=== PATIENT | female | born 1950 | race Caucasian/White ===

== ENCOUNTER 2017-10-29 08:05 | Day surgery (SDC) | payer OTHER ==
[2017-10-19 10:41] VITALS: BMI 21.3
[2017-10-29] MEDS ORDERED: GABAPENTIN 300 MG CAPSULE (FP) PO STA (08:26)
[2017-10-29] MEDS ORDERED: oxyCODONE HCL 10 MG SUSTAINED ACTING TABLET PO STA (08:26)
[2017-10-29] MEDS ORDERED: THROMBIN (BOVINE) 5,000 UNIT VIAL TP ONE ×3 (08:41→11:45)
[2017-10-29] MEDS ORDERED: methylPREDNISolone ACET (DEPO) 40 MG/1 ML VIAL ONE (08:41)
[2017-10-29] MEDS ORDERED: LIDOCAINE 1%/EPI 1:100000 (20 ML MULTI DOSE VIAL) ONE (08:41)
[2017-10-29] MEDS ORDERED: MIDAZOLAM HCL 2 MG/2 ML SINGLE DOSE VIAL ONE ×2 (09:18→10:52)
[2017-10-29] MEDS ORDERED: BUPIVACAINE HCL/PF (5 MG/ML) 30 ML VIAL IJ ONE (09:19)
[2017-10-29] MEDS ORDERED: DEXAMETHASONE SOD PHOSPHATE/PF 10 MG/ML SDV ONE (09:19)
--- NOTE | 2017-10-29 10:32 | OP ---
Operative Note - Note: Operative Date: 10/29/17 Pre-Operative Diagnosis: lumbar stenosis Operation: laminectomy of L4-L5 Surgeon: Andrew Chavez Mowing Machine Operator: Fadumo Garces Anesthesiologist/ELECTRONIC BENCH TECHNICIAN: Ben Panda Anesthesia: Spinal Estimated Blood Loss (mls): 10 Fluid Volume Replaced (mls): 800 Operative Report Dictated: Yes
[2017-10-29] MEDS ORDERED: PROPOFOL 20 ML ONE (10:51)
[2017-10-29] MEDS ORDERED: SUCCINYLCHOLINE CHLORIDE 200 MG/10 ML VIAL ONE (10:52)
--- NOTE | 2017-10-29 12:02 | SURG ---
Surgery Truck Mechanic Note Truck Mechanic: Fadumo Garces PA-C Date of Service: 10/29/17 Diagnosis: lumbar stenosis Procedure: lamienctomy of L4-L5 I was present for the entirety of the operative procedure. For further detail, please refer to operative report. Visit type - Emergency Emergency Visit: No - New patient This patient is new to me today: Yes Date on this admission: 10/29/17
[2017-10-29] MEDS ORDERED: ONDANSETRON 4 MG/2 ML VIAL IVPUSH PRN (12:12)
[2017-10-29] MEDS ORDERED: oxyCODONE HCL 5 MG TABLET PO PRN ×2 (12:12)
[2017-10-29] MEDS ORDERED: PROMETHAZINE HCL 25 MG/1 ML VIAL IVPUSH PRN (12:12)
[2017-10-29 15:34] VITALS: BP 136/80; PULSE 81
[2017-10-29 15:38] VITALS: TEMP 98
--- NOTE | 2017-10-29 21:43 | OP ---
DATE OF OPERATION: 10/29/2017 PREOPERATIVE DIAGNOSIS: Spinal stenosis, L4-5. POSTOPERATIVE DIAGNOSIS: Spinal stenosis, L4-5. PROCEDURE PERFORMED: Laminectomy, L4-5. SURGEON: Andrew Chavez MD SPANISH INTERPRETER: GAURI Smith ESTIMATED BLOOD LOSS: 50 mL INTRAVENOUS FLUIDS: Per Anesthesia. ANESTHESIA: Spinal/TLIP. COMPLICATIONS: None. DISPOSITION: Patient was brought to the PACU in stable condition. INDICATION FOR SURGERY: The patient is a 67-year-old female who has been suffering from pain from her back down her leg. X-rays and MRI were completed which noted that she had spinal stenosis at L4-5. She had gone through an exhaustive course of treatment for this, which included medications, physical therapy as well as injections. Unfortunately, her pain continued to persist despite all this. At this point, risks, benefits, and alternatives were discussed, and the patient consented to surgery. DESCRIPTION OF PROCEDURE: Patient was brought to the operating room by the anesthesia staff. After appropriate patient identification was performed, spinal anesthesia was given. A TLIP block was also given. Patient was able to position herself prone onto the Tom frame. All areas of bony prominences were well padded at this time. Two needles were placed into her back to joaquin off the L4-5 segment. X-ray was taken to confirm this as correct. Poth were removed, and 10 mL of lidocaine with epinephrine were injected in her back at this time. Her back was prepped and draped in a sterile manner. At this point, a timeout was completed. An incision was made from the top of L4 down to the bottom of L5. Dissection was carried down to the fascia. Fascia was split open at this time, and appropriate retractor was then placed in. A spinal needle was placed onto the L4 lamina. X-ray was taken to confirm this as the L4-5 level. The needle was removed. The interspinous ligament at L4-5 was removed. Portions of the L4 and L5 spinous processes were removed. Portions of the L4 and L5 laminae were removed. The flavum was identified, was removed. A complete decompression was performed such that by the end of the procedure the L5 nerve root appeared to be well decompressed. All bleeding was well controlled at this time. Steroid was placed over the nerve root. FloSeal was placed over that. The fascia was closed with a No. 1 Vicryl suture. Subcutaneous tissues were closed with 2-0 Vicryl suture. Skin was closed with 3-0 Monocryl suture. Dermabond was applied. Steri-Strips were applied. A sterile dressing was applied. Patient was placed supine on the OR bed and brought to the PACU in stable condition. So [id number]
== END 2017-10-29 15:39 | disposition home or self-care (01) ==
LOC: FASU 08:05
PROVIDERS: ATTEND Orthopaedic Surgery Orthopaedic Surgery of the Spine
PROC: 01NB0ZZ Release Lumbar Nerve, Open Approach (ICD-10-PCS; principal; 2017-10-29 11:01)
DX: M48.061 Spinal stenosis, lumbar region without neurogenic claudication (principal)
CPT/HCPCS: 72100-TC-FY; 94760

== ENCOUNTER 2018-07-25 09:31 | Inpatient (IN) | payer OTHER ==
[2018-07-22 13:20] VITALS: BMI 20.4
--- NOTE | 2018-07-25 07:28 | HP ---
History & Physical Update - History History: No Change - Physical Physical: No Change - Assessment Assessment: No Change - Plan Plan: No Change (Initial H&P is located in patient's paper chart and will be scanned in [facility]. Complete and accurate. No new complaints or medications. Here today for elective Posterior Lumbar Decompression / Fusion / Instrumentation / Transforaminal Lumbar Interbody Fusion L4/5 with Allograft Implant; Neuromonitoring)
[2018-07-25] MEDS ORDERED: oxyCODONE HCL 10 MG SUSTAINED ACTING TABLET PO STA (10:36)
[2018-07-25] MEDS ORDERED: CEFAZOLIN 1 GM in DEXTROSE 5%-WATER - 100 ML IVPB ONE (10:36)
[2018-07-25] MEDS ORDERED: THROMBIN (RECOMBINANT) 5,000 UNIT VIAL TP ONE (11:51)
[2018-07-25] MEDS ORDERED: BUPIVACAINE LIPOSOME/PF (EXPAREL) 266 MG/20 ML VIAL ONE (12:03)
[2018-07-25] MEDS ORDERED: BUPIVACAINE HCL/PF 2.5 MG/ML - 30 ML VIAL IJ ONE (12:03)
[2018-07-25] MEDS ORDERED: MIDAZOLAM HCL 2 MG/2 ML SINGLE DOSE VIAL ONE (12:03)
[2018-07-25] MEDS ORDERED: PROPOFOL 20 ML ONE (12:53)
[2018-07-25] MEDS ORDERED: SUCCINYLCHOLINE CHLORIDE 200 MG/10 ML VIAL ONE (12:54)
[2018-07-25] MEDS ORDERED: DEXAMETHASONE SOD PHOSPHATE 4 MG/1 ML VIAL ONE (13:05)
[2018-07-25] MEDS ORDERED: ONDANSETRON 4 MG/2 ML VIAL ONE (13:05)
[2018-07-25] MEDS ORDERED: ceFAZolin SODIUM 1 GM VIAL ONE (13:05)
[2018-07-25] MEDS ORDERED: oxyCODONE HCL 5 MG TABLET PO PRN ×2 (14:36→15:06)
[2018-07-25] MEDS ORDERED: ONDANSETRON 4 MG/2 ML VIAL IVPUSH PRN (14:36)
[2018-07-25] MEDS ORDERED: LACTATED RINGERS SOLUTION 1,000 ML IV SCH ×2 (14:45→15:15)
--- NOTE | 2018-07-25 15:04 | OP ---
Operative Note - Note: Operative Date: 07/25/18 Pre-Operative Diagnosis: L4/5 spondylolithesis w/ radiculopathy Operation: Posterior Lumbar Decompression / Fusion / Instrumentation / Transforaminal Lumbar Interbody Fusion L4/5 with Allograft Implant; Neuromonitoring Post-Operative Diagnosis: Same as Pre-op Surgeon: Andrew Chavez Terminal Makeup Operator: Kaleb Carlos Anesthesiologist/CAST IRON DRAIN PIPE LAYER: Gemini Vargas Anesthesia: Spinal Specimens Removed: L4/5 disc Estimated Blood Loss (mls): 30 Fluid Volume Replaced (mls): 600 Operative Report Dictated: Yes
[2018-07-25] MEDS ORDERED: ACETAMINOPHEN 1000 MG/100 ML VIAL (NON FORMULARY) IVPB PRN (15:06)
--- NOTE | 2018-07-25 15:06 | SURG ---
Surgery Director Of Distance Learning Note Director Of Distance Learning: Kaleb Carlos PA-C Date of Service: 07/25/18 Diagnosis: L4/5 spondylolithesis w/ LE radiculopathy Procedure: Posterior Lumbar Decompression / Fusion / Instrumentation / Transforaminal Lumbar Interbody Fusion L4/5 with Allograft Implant; Neuromonitoring I was present for the entirety of the operative procedure. For further detail, please refer to operative report. Visit type - Case Type Case Type: Scheduled - New patient This patient is new to me today: Yes Date on this admission: 07/25/18
[2018-07-25] MEDS ORDERED: PATIENT'S OWN MEDICATION (NON-FORMULARY) (Gabapentin [Gabapentin] 600 MG) PO PRN (15:09)
[2018-07-25] MEDS: ACETAMINOPHEN 325 MG TABLET (FP) PO SCH ×2 (16:00→21:17)
[2018-07-25] MEDS: CEFAZOLIN 1 GM/D5W 1 GM/50 ML BAG IVPB SCH (17:59)
[2018-07-25] MEDS: oxyCODONE HCL 5 MG TABLET PO PRN ×2 (18:39→23:53)
[2018-07-25] MEDS: diazePAM 2 MG TABLET PO SCH (21:17)
[2018-07-26] MEDS ORDERED: DEXAMETHASONE SOD PHOSPHATE 10 MG/1 ML VIAL IVPB ONE (01:00)
[2018-07-26] MEDS: CEFAZOLIN 1 GM/D5W 1 GM/50 ML BAG IVPB SCH ×2 (01:49→09:25)
[2018-07-26] MEDS: ACETAMINOPHEN 325 MG TABLET (FP) PO SCH ×2 (03:30→09:16)
[2018-07-26] MEDS ORDERED: GABAPENTIN 300 MG CAPSULE (FP) PO ONE (03:30)
[2018-07-26] MEDS ORDERED: LEVOTHYROXINE NA 112 MCG TABLET (FP) PO SCH (07:00)
--- NOTE | 2018-07-26 07:24 | DS ---
"Physical Exam: SUBJECTIVE: POD#1 Posterior Lumbar Decompression / Fusion / Instrumentation / Transforaminal Lumbar Interbody Fusion L4/5 with Allograft Implant. patient seen and examined at bedside. Patient had some pain control issues over night that were addressed by anesthesia and she is feeling much better now. She c/o radicular pain down the right LE. She is tolerating her diet, voiding and denies any CP, SOB, N/V, fever or chills. OBJECTIVE: Vital Signs Period Temp Pulse Resp BP Sys/Sanchez Pulse Ox Last 24 Hr 97.5 F-98.7 F 57-78 12-18 102-136/49-66 96-100 PHYSICAL EXAM GENERAL: The patient is awake, alert, and fully oriented, in no acute distress. HEAD: Normal with no signs of trauma. EYES: sclera anicteric, conjunctiva clear. LUNGS: no auditory wheezes, no accessory muscle use. Lumbar Spine: Incisions c/d/i with surrounding tissues intact and steri strips in place, no tracking erythema, edema evidence of collection or d/c EXTREMITIES: B/L LE compartments soft, supple and non-tender, 5/5 dorsi/ plantar flexion with 2+ pulses, warm, well-perfused, no edema. NEUROLOGICAL: Cranial nerves II through XII grossly intact. Normal speech, gait not observed. PSYCH: Normal mood, normal affect. SKIN: Warm, dry, normal turgor, no rashes or lesions noted. LABS CBC, BMP 07/26/18 07:03 05 07:03 HOSPITAL COURSE: Date of Admission:07/25/18 The patient was admitted to the Med-Surg Unit after an elective repair of her L4 /5 spondylolithesis w/ LE radiculopathy. Now, s/p Posterior Lumbar Decompression / Fusion / Instrumentation / Transforaminal Lumbar Interbody Fusion L4/5 with Allograft Implant The day of surgery, the patient ambulated the hallways with assistance. Narcotic and non-narcotic pain management control was achieved with an oral and IV approach. An xray was obtained and confirmed hardware placement at L4-L5, no fractures or dislocations. Pilar-operative IV ABX were administered. DVT prophylaxis was achieved with SCDs and early ambulation. The patient ambulated with Physical Therapy and no services were recommended upon discharge. Narcotic scripts and or muscle relaxants were checked with [place] [facility] prior to escibe. The discharge instructions and an oral pain management plan were reviewed with the patient. All questions answered. Above plan discussed with Dr. Chavez and agreed . Date of Discharge: 07/26/18 Minutes to complete discharge: 25 <Laxmi Velarde - Last Filed: 07/26/18 10:24> Physical Exam: SUBJECTIVE: Patient seen and examined OBJECTIVE: Vital Signs Period Temp Pulse Resp BP Sys/Sanchez Pulse Ox Last 24 Hr 97.5 F-98.7 F 57-79 12-18 102-136/45-66 96-100 PHYSICAL EXAM GENERAL: The patient is awake, alert, and fully oriented, in no acute distress. HEAD: Normal with no signs of trauma. EYES: PERRL, extraocular movements intact, sclera anicteric, conjunctiva clear. ENT: Ears normal, nares patent, oropharynx clear without exudates, moist mucous membranes. NECK: Trachea midline, full range of motion, supple. LUNGS: Breath sounds equal, clear to auscultation bilaterally, no wheezes, no crackles, no accessory muscle use. HEART: Regular rate and rhythm, S1, S2 without murmur, rub or gallop. ABDOMEN: Soft, nontender, nondistended, normoactive bowel sounds, no guarding, no rebound, no hepatosplenomegaly, no masses. EXTREMITIES: 2+ pulses, warm, well-perfused, no edema. NEUROLOGICAL: Cranial nerves II through XII grossly intact. Normal speech, gait not observed. PSYCH: Normal mood, normal affect. SKIN: Warm, dry, normal turgor, no rashes or lesions noted. LABS Laboratory Results - last 24 hr 07/26/18 07/26/18 07:03 07:03 WBC 10.3 RBC 3.55 L Hgb 11.0 Hct 32.4 MCV 91.2 MCH 31.1 MCHC 34.1 RDW 12.3 Plt Count 160 MPV 7.7 Sodium 139 Potassium 4.0 Chloride 105 Carbon Dioxide 25 Anion Gap 9 BUN 13 Creatinine 0.7 Creat Clearance w eGFR 83.47 Random Glucose 187 H Calcium 8.6 HOSPITAL COURSE: Date of Admission:07/25/18 Date of Discharge: 07/26/18 Patient was seen and examined Agree with above D/C Planning <Andrew Chavez - Last Filed: 07/26/18 14:07> Discharge Summary Reason For Visit: SPONDYLOLISTHESIS - Home Medications Comprehensive Discharge Medication List: Ambulatory Orders Gabapentin 600 mg PO PRN PRN 10/19/17 Levothyroxine [Synthroid -] 112 mcg PO DAILY 10/19/17 Ascorbic Acid [Vitamin C -] 1,000 mg PO DAILY 07/22/18 Calcium Carbonate [Oysco-500] 500 mg PO DAILY 07/22/18 <Laxmi Velarde - Last Filed: 07/26/18 10:24> - Home Medications Comprehensive Discharge Medication List: Ambulatory Orders Gabapentin 600 mg PO PRN PRN 10/19/17 Levothyroxine [Synthroid -] 112 mcg PO DAILY 10/19/17 Ascorbic Acid [Vitamin C -] 1,000 mg PO DAILY 07/22/18 Calcium Carbonate [Oysco-500] 500 mg PO DAILY 07/22/18 Diazepam [Valium] 2 mg PO TID #21 tablet MDD 3 07/26/18 Docusate Sodium [Colace -] 100 mg PO BID #60 capsule 07/26/18 Gabapentin [Neurontin] 600 mg PO DAILY #20 tablet 07/26/18 oxyCODONE HCL [Roxicodone -] 5 mg PO Q4H PRN #30 tablet MDD 6 07/26/18 <Andrew Chavez - Last Filed: 07/26/18 14:07> Condition: Stable - Instructions Diet, Activity, Other Instructions: Post Operative Instructions - Dr Chavez Diet: You may resume your regular diet. We recommend eating plenty of fiber rich foods to prevent constipation, which can be caused by taking narcotic pain medications. You may also use a stool softener such as DulcoEase. We recommend drinking plenty of water unless you are on fluid restrictions for another medical condition. If you are a diabetic, make sure to keep your glucose well controlled as elevated glucose levels promote infection. Medications: You may resume your previous medications unless otherwise instructed by your surgeon, primary care doctor or clarity developer. You have been prescribed a Narcotic pain medication. Driving or drinking alcohol is PROHIBITED while taking narcotic pain medication, as is operating any heavy machinery. Activity: No bending and or twisting at the waist. No lifting greater than [address] until seen in the office for your first post-operative visit. You may be a passenger for a short time (20-30 minutes) until you are able to tolerate longer distances. Wound Care: Keep area clean and dry. May remove dressing in two (2) days and replace with clean gauze and occlusive dressing such as a tegaderm. NO BATHS. You may shower starting two (2) days after your surgery. When showering, leave the occlusive(plastic) dressing in place and change if it appears wet. Avoid direct water stream onto your incision. General Recommendations: If sitting, use only a straight back chair to ensure proper support, not to exceed a half hour at a time. Lie only on a firm mattress, no couches or recliner chairs. You may lie on your back or side, but not on your abdomen. * Absolutely no bending, stooping, pushing, lifting or straining. * Avoid housework, especially vacuuming or sweeping. * OK to cook, as long as you are not lifting anything heavier than 5 pounds. * Use proper body mechanics to maintain a neutral spine position. * Increasing pain is a red flag telling you to rest. Call your surgeon or report to the ED if you develop: Fevers over 101.5 Chest pain, trouble breathing, calf pain Drainage from the incision (yellow/green, foul smelling) Follow-up Call surgeon's office to schedule your follow-up appointment in two weeks. Referred to following clinics/specialists for follow-up care: Andrew Chavez MD [facility]/[address], [address] [place] [address] [phone] [facility] ROOM MAID: This report was requested by: Kaleb Carlos | Reference #: [id number] Disposition: HOME Problem List - Problems (1) Spondylisthesis Assessment/Plan: POD #1 L4-5 decompression and fusion with pain now controlled 1) d/c home today with pain regime as discussed 2) OOB as tolerated 3) follow up with Dr Chavez as scheduled. Evaluation and plan discussed with Dr Chavez Code(s): M43.10 - SPONDYLOLISTHESIS, SITE UNSPECIFIED <Laxmi Velarde - Last Filed: 07/26/18 10:24> This patient is new to me today: Yes Date on this admission: 07/26/18 Emergency Visit: No Critical Care patient: No - Discharge Referral Referred to [facility] No <Laxmi Velarde - Last Filed: 07/26/18 10:24>"
[2018-07-26 07:31] LABS: HEMATOCRIT 32.4 % (32.4-45.2); MCH 31.1 pg (25.7-33.7); MCHC 34.1 g/dl (32.0-36.0); MEAN CELL VOLUME 91.2 fl (80-96); MEAN PLT VOLUME 7.7 fl (7.5-11.1); PLATELET COUNT 160 K/MM3 (134-434); RBC 3.55 M/mm3 (3.60-5.2); RDW 12.3 % (11.6-15.6); WHITE BLOOD COUNT 10.3 K/mm3 (4.0-10.8)
[2018-07-26 07:32] LABS: ANION GAP 9 MMOL/L (8-16); BLOOD UREA NITROGEN 13 mg/dl (7-18); CALCIUM 8.6 mg/dl (8.5-10); CHLORIDE 105 mmol/L (98-107); CO2 25 mmol/L (21-32); CREATININE 0.7 mg/dl (0.55-1.3); GLUCOSE,RANDOM 187 mg/dl (74-106); SODIUM 139 mmol/L (136-145)
--- NOTE | 2018-07-26 09:08 | PN ---
Progress Note (short form) - Note Progress Note: 68F POD1 s/p L4-5 lumbar fusion under spinal anesthetic with bilateral TLIP blocks. Pt has chronic 10/10 pain that is slightly improved post operatively. AVSS. Motor and sensory function intact at patient's baseline. Continue current regimen.
[2018-07-26] MEDS: oxyCODONE HCL 5 MG TABLET PO PRN (09:29)
[2018-07-26 09:37] VITALS: BP 122/45; PULSE 79; TEMP 98.1
[2018-07-26] MEDS ORDERED: PT OWN MED DRAWER 7, Y5N ONE ×2 (09:43→13:19)
[2018-07-26] MEDS ORDERED: CALCIUM (OYSTER SHELL) 500 MG TABLET (FP) PO SCH (10:00)
[2018-07-26] MEDS ORDERED: ASCORBIC ACID 500 MG TABLET (FP) PO SCH (10:00)
[2018-07-26] MEDS: diazePAM 2 MG TABLET PO SCH (10:50)
--- NOTE | 2018-08-02 16:58 | OP ---
DATE OF OPERATION: 07/25/2018 PREOPERATIVE DIAGNOSIS: 1. L4-5 spondylolisthesis. 2. Spinal stenosis. POSTOPERATIVE DIAGNOSIS: 1. L4-5 spondylolisthesis. 2. Spinal stenosis. PROCEDURE PERFORMED: 1. Transforaminal interbody fusion, L4-5. 2. Placement of instrumentation. 3. Placement of a prosthetic cage. SURGEON: Andrew Chavez M.D. PEDICAB DRIVER: Devika Gonazlez ESTIMATED BLOOD LOSS: 50 mL INTRAVENOUS FLUIDS: Per anesthesia. ANESTHESIA: Spinal/TLIP. COMPLICATIONS: There were none. DISPOSITION: Patient brought to the PACU in stable condition. INDICATION FOR SURGERY: The patient is a 68-year-old female who has been suffering from pain from her back down her legs. X-rays and MRI were completed, which noted she has spinal stenosis at L4-5 secondary to spondylolisthesis. She had previously undergone a laminectomy successfully, but she had recurrence of her pain. She had gone through an exhaustive course of treatment for this which included medications, physical therapy, as well as injections. Unfortunately, the pain continued to persist in spite of all this. At this point, risks, benefits, and alternatives were discussed, and the patient consented to surgery. OPERATIVE NOTE: Patient is brought to the operating room by anesthesia staff. After appropriate patient identification is performed, spinal anesthesia was given. A TLIP block was also given. Patient was able to position herself prone onto the OR table with all areas of bony prominences well padded at this time. The C-arm was brought in, and the L4 and L5 pedicles were marked off. Her back was prepped and draped in the sterile manner. At this point, a timeout was completed, and incisions were made bilaterally with L4-L5 pedicles. Dissection was carried down to the fascia. Fascia was then split at this time. Under C-arm guidance, trocars were advanced to both the L4-L5 pedicles. Through the trocars, a wire was inserted. Over the wire, tap was performed, and the screws were inserted. On the left hand side, retractor blades were set up to expose the L4-5 facet joint. The facet joint was identified and was removed. The disk was entered using a series of pituitaries, Kerrisons and curets. A diskectomy was completed at this time. The endplates were decorticated. Bone graft was placed in a cage and bone graft was placed in. Tulip heads were placed on the screws. The tobias was measured and placed, and caps and compression was applied. On the right hand side, the tobias was measured and placed, and caps and compression was applied. AP and lateral x-rays confirmed the instrumentation being in good position. The fascia was closed with a number 1 Vicryl suture. Subcutaneous tissue was closed with 2-0 Vicryl suture. Skin was closed with 3-0 Monocryl suture. Dermabond was applied. Steri-Strips were applied. Sterile dressing was applied. Patient was placed supine on OR bed, and brought to the PACU in stable condition. So [id number] MTDD
== END 2018-07-26 12:29 | disposition home or self-care (01) | DRG 455 ==
LOC: FM/S 09:31
PROVIDERS: ADMIT Orthopaedic Surgery Orthopaedic Surgery of the Spine; ATTEND Orthopaedic Surgery Orthopaedic Surgery of the Spine
PROC: 0SG00K1 Fusion of Lumbar Vertebral Joint with Nonautologous Tissue Substitute, Posterior Approach, Posterior Column, Open Approach (ICD-10-PCS; 2018-07-25)
PROC: 0SB20ZZ Excision of Lumbar Vertebral Disc, Open Approach (ICD-10-PCS; 2018-07-25)
PROC: 4A11X4G Monitoring of Peripheral Nervous Electrical Activity, Intraoperative, External Approach (ICD-10-PCS; 2018-07-25)
PROC: 0SG00AJ Fusion of Lumbar Vertebral Joint with Interbody Fusion Device, Posterior Approach, Anterior Column, Open Approach (ICD-10-PCS; principal; 2018-07-25 13:39)
DX: M43.16 Spondylolisthesis, lumbar region (principal); M54.16 Radiculopathy, lumbar region; M48.061 Spinal stenosis, lumbar region without neurogenic claudication
CPT/HCPCS: 36415; 72100-TC-FY; 76000-TC-FY; 80048; 85027; 94760; 97116-GP; 97162-GP; J1100

== ENCOUNTER 2018-08-08 14:25 | Inpatient (IN) | payer OTHER ==
[2018-08-08] MEDS ORDERED: KETOROLAC TROMETHAMINE 15 MG/ML VIAL IVPUSH ONE (15:11)
[2018-08-08] MEDS ORDERED: KETOROLAC TROMETHAMINE 30 MG/1 ML VIAL ONE (15:24)
[2018-08-08 16:16] LABS: BASO % 0.6 % (0-2.0); EOS % 2.5 % (0-4.5); HEMATOCRIT 37.2 % (32.4-45.2); HEMOGLOBIN 12.1 GM/dl (10.7-15.3); LYMPH % 23.5 % (8-40); MCH 29.7 pg (25.7-33.7); MCHC 32.5 g/dl (32.0-36.0); MEAN CELL VOLUME 91.6 fl (80-96); MEAN PLT VOLUME 6.8 fl (7.5-11.1); MONO % 7.4 % (3.8-10.2); PLATELET COUNT 341 K/MM3 (134-434); RBC 4.05 M/mm3 (3.60-5.2); RDW 12.5 % (11.6-15.6); WHITE BLOOD COUNT 8.8 K/mm3 (4.0-10.8)
--- NOTE | 2018-08-08 16:22 | PDOC ---
Documentation entered by Aubrie Nelson SCRIBE, acting as scribe for Jena Gresham MD. Jena Gresham MD: This documentation has been prepared by the Omar pérez Xhesika, SCRIBE, under my direction and personally reviewed by me in its entirety. I confirm that the documentation accurately reflects all work, treatment, procedures, and medical decision making performed by me. History of Present Illness - General Chief Complaint: Back Pain Stated Complaint: LOW BACK/LEG PAIN Time Seen by Provider: 08/08/18 14:38 History Source: Patient Exam Limitations: No Limitations - History of Present Illness Initial Comments: 08/08/18 16:24 The patient is a 68 year old female, with a significant PMH of hypothyroidism and L4/L5 fusion 07/25/[address] Chavez who presents to the emergency department with lower back pain. The patient states her lower back pain radiates down her L leg and she endorses L leg weakness and numbness L > R. The patient states her pain began right after her surgery on 07/25/18 and has progressively gotten worse. The patient states she is not able to walk and uses a cane at her baseline. As per , the patient is in agonizing pain, crying and is not able to sleep throughout the night. The patient reports she is taking 10mg of oxycodone, without relief as well as valium. She denies any urinary or stool incontinence or retenion, but states when she has a bowel movement, her back pain is worse. Pt called Dr. Chavez today and he advised her to come to the ED for MRI and admission for pain control. The patient was admitted at [facility] on 07/25/18 for Posterior Lumbar Decompression, Fusion, Instrumentation, and Transforaminal Lumbar Interbody Fusion L4/5 with Allograft Implant. The patient denies chest pain, shortness of breath or dizziness. The patient denies fever, chills, nausea, vomiting, diarrhea or constipation. The patient denies dysuria, frequency, urgency or hematuria. Allergy: levofloxacin Surgical History: Appendectomy, Right shoulder Social History: Social Drinker. Former smoker. PCP: Andrew Thomas Past History - Past Medical History Allergies/Adverse Reactions: Allergies Allergy/AdvReac Type Severity Reaction Status Date / Time levofloxacin [From Levaquin] Allergy Severe Swelling Verified 10/29/17 08:38 Home Medications: Ambulatory Orders Gabapentin 600 mg PO PRN PRN 10/19/17 Levothyroxine [Synthroid -] 112 mcg PO DAILY 10/19/17 Ascorbic Acid [Vitamin C -] 1,000 mg PO DAILY 07/22/18 Calcium Carbonate [Oysco-500] 500 mg PO DAILY 07/22/18 Diazepam [Valium] 2 mg PO TID #21 tablet MDD 3 07/26/18 Docusate Sodium [Colace -] 100 mg PO BID #60 capsule 07/26/18 Gabapentin [Neurontin] 600 mg PO DAILY #20 tablet 07/26/18 oxyCODONE HCL [Roxicodone -] 5 mg PO Q4H PRN #30 tablet MDD 6 07/26/18 Anemia: No Asthma: No Cancer: No Cardiac Disorders: No CVA: No COPD: No CHF: No Dementia: No Diabetes: No GI Disorders: No Disorders: No HTN: No Hypercholesterolemia: No Liver Disease: No Seizures: No Thyroid Disease: Yes (HYPOTHYROIDISM) - Surgical History Abdominal Surgery: No Appendectomy: Yes (2014) Cardiac Surgery: No Cholecystectomy: No Lung Surgery: No Neurologic Surgery: No Orthopedic Surgery: Yes (RIGHT SHOULDER) - Suicide/Smoking/Psychosocial Hx Smoking History: Former smoker Have you smoked in the past 12 months: No Number of Cigarettes Smoked Daily: 20 If you are a former smoker, when did you quit?: 2008 Hx Alcohol Use: Yes (WINE SOCIAL) Drug/Substance Use Hx: No Substance Use Type: Alcohol Hx Substance Use Treatment: No Review of Systems - Review of Systems Able to Perform ROS?: Yes Comments:: 08/08/18 16:24 GENERAL/CONSTITUTIONAL: No fever or chills. HEAD, EYES, EARS, NOSE AND THROAT: No change in vision. No ear pain or discharge. No sore throat. GASTROINTESTINAL: No nausea, vomiting, diarrhea or constipation. GENITOURINARY: No dysuria, frequency, or change in urination. CARDIOVASCULAR: No chest pain or shortness of breath. RESPIRATORY: No cough, wheezing, or hemoptysis. MUSCULOSKELETAL: (+) lower back pain. (+) Leg weakness and numbess L>R. No joint or muscle swelling. No neck pain. SKIN: No rash NEUROLOGIC: No headache, vertigo, loss of consciousness, or change in strength/ sensation. ENDOCRINE: No increased thirst. No abnormal weight change. HEMATOLOGIC/LYMPHATIC: No anemia, easy bleeding, or history of blood clots. ALLERGIC/IMMUNOLOGIC: No hives or skin allergy. *Physical Exam - Vital Signs Last Vital Signs Temp Pulse Resp BP Pulse Ox 97.6 F 86 18 149/61 98 08/08/18 14:33 08/08/18 14:33 08/08/18 14:33 08/08/18 14:33 08/08/18 14:33 - Physical Exam Comments: 08/08/18 16:24 GENERAL: (+) appears uncomfortable. Awake, alert, and fully oriented. HEAD: No signs of trauma EYES: EOMI, sclera anicteric, conjunctiva clear ENT: Oropharynx clear without exudates. Moist mucosa NECK: Normal ROM, supple, no lymphadenopathy, JVD, or masses LUNGS: Breath sounds equal, clear to auscultation bilaterally. No wheezes, and no crackles HEART: Regular rate and rhythm, normal S1 and S2, no murmurs, rubs or gallops ABDOMEN: Soft, nontender, normoactive bowel sounds. No guarding, no rebound. No masses EXTREMITIES: Normal range of motion, no edema. No cords, erythema, or tenderness BACK: (+) two vertical 4cm linear incisions b/l on paraspinal aspect of lumbar spine. Wounds are c/d/i without erythema NEUROLOGICAL: Normal speech, cranial nerves intact, 4/5 strength in LE extremities unclear if due to weakness or pain, normal sensation to light touch in all 4 extremities, normal cerebellar exam, gait deferred, normal reflexes and tone SKIN: As noted in back exam, otherwise, warm, dry, normal turgor, no rashes or lesions noted. ED Treatment Course - LABORATORY CBC & Chemistry Diagram: 08/08/18 15:50 08/08/18 15:50 - ADDITIONAL ORDERS Additional order review: 08/08/18 15:50 RBC 4.05 MCV 91.6 MCHC 32.5 RDW 12.5 MPV 6.8 L Neutrophils % 66.0 Lymphocytes % 23.5 Monocytes % 7.4 Eosinophils % 2.5 Basophils % 0.6 - RADIOLOGY Radiology Studies Ordered: Category Date Time Status LUMBAR SPINE MRI W/O CONTRAST [MRI] Stat MRI 08/08/18 14:49 Taken - Medications Given in the ED: ED Medications Discontinued Medications Generic Name Dose Route Start Last Admin Trade Name Uday PRN Reason Stop Dose Admin Ketorolac Tromethamine 30 mg 08/08/18 15:11 08/08/18 15:50 Toradol Injection - IVPUSH 08/08/18 15:12 30 mg ONCE ONE Administration Medical Decision Making - Medical Decision Making 08/08/18 17:02 68yo F with recent lumbar fusion presents to the ED with intractable low back pain since surgery despite doubling up on oxycodone and also taking valium. Pt accompanied to ED with Dr. Chavez. Stat MRI was obtained to r/o cord compression, on review of MRI by Dr. Chavez, no concern for cord compression. 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 Escalera's service Case discussed in detail with admitting physician including history, physical exam and ancillary studies. Admitting physician has assumed care for the patient, will follow all pending diagnostics and will complete the evaluation and treatment. *DC/Admit/Observation/Transfer Diagnosis at time of Disposition: Back pain - Discharge Dispostion Condition at time of disposition: Good Decision to Admit order Date/Time: Decision to Admit Order Category Date Time Status Decision to Admit to Hospital Routine Admission 08/08/18 16:14 Active - Referrals Referrals: Andrew Chavez MD [Primary Care Provider] - - Patient Instructions - Post Discharge Activity - Attestations Physician Attestion: 08/08/18 17:05 I, Dr. Jena Gresham MD, attest that this document has been prepared under my direction and personally reviewed by me in its entirety. I further attest, that it accurately reflects all work, treatment, procedures and medical decision -making performed by me.
[2018-08-08 16:28] LABS: ALBUMIN 3.7 g/dl (3.4-5.0); BILIRUBIN,TOTAL 0.4 mg/dl (0.2-1); CALCIUM 9.2 mg/dl (8.5-10); CREATININE 0.7 mg/dl (0.55-1.3); POTASSIUM 4.1 mmol/L (3.5-5.1); TOT PROT 7.3 g/dl (6.4-8.2)
[2018-08-08] MEDS ORDERED: oxyCODONE HCL 5 MG TABLET PO ONE (17:53)
[2018-08-08] MEDS ORDERED: diazePAM CARPU-JECT 10 MG/2 ML DISP.SYRIN IVPUSH ONE (17:53)
[2018-08-08 18:11] VITALS: BMI 20.6
[2018-08-08] MEDS ORDERED: diazePAM 5 MG TABLET PO ONE (18:45)
--- NOTE | 2018-08-08 18:52 | HP ---
CHIEF COMPLAINT:Low back pain, left leg pain PCP: HISTORY OF PRESENT ILLNESS: Isaak Suh is 68 year old female, with a significant PMH of hypothyroidism and L4/L5 fusion 07/25/[address] Chavez who presents to the emergency department with lower back pain. The patient states her lower back pain radiates down her L leg and she endorses L leg weakness and numbness L > R. The patient states her pain began right after her surgery on 07/25/18 and has progressively gotten worse. pt seen at bedside, very drowsy during interview, received toradol in ED. pt reports worsening pain in left leg. denies urinary or stool incontinence. ED note reviewed, Pt called Dr. Chavze today and he advised her to come to the ED for MRI and admission for pain control. The patient was admitted at [facility] on for Posterior Lumbar Decompression, Fusion, Instrumentation, and Transforaminal Lumbar Interbody Fusion L4/5 with Allograft Implant. ER course was notable for: (1)MRI no cord compression (2) (3) Recent Travel: PAST MEDICAL HISTORY:hypothyroidism and L4/L5 fusion PAST SURGICAL HISTORY:Posterior Lumbar Decompression, Fusion, Instrumentation, and Transforaminal Lumbar Interbody Fusion L4/5 with Allograft Implant. Social History: Smoking: Alcohol: Drugs: Family History: Allergies levofloxacin [From Levaquin] Allergy (Severe, Verified 08/08/18 17:38) Swelling HOME MEDICATIONS: Home Medications Medication Instructions Recorded Gabapentin 600 mg PO PRN PRN 10/19/17 Levothyroxine [Synthroid -] 112 mcg PO DAILY 10/19/17 Ascorbic Acid [Vitamin C -] 1,000 mg PO DAILY 07/22/18 Calcium Carbonate [Oysco-500] 500 mg PO DAILY 07/22/18 Diazepam [Valium] 2 mg PO TID #21 tablet MDD 3 07/26/18 Docusate Sodium [Colace -] 100 mg PO BID #60 capsule 07/26/18 Gabapentin [Neurontin] 600 mg PO DAILY #20 tablet 07/26/18 oxyCODONE HCL [Roxicodone -] 5 mg PO Q4H PRN #30 tablet MDD 6 07/26/18 REVIEW OF SYSTEMS CONSTITUTIONAL: Absent: fever, chills, diaphoresis, generalized weakness, malaise, loss of appetite, weight change HEENT: Absent: rhinorrhea, nasal congestion, throat pain, throat swelling, difficulty swallowing, mouth swelling, ear pain, eye pain, visual changes CARDIOVASCULAR: Absent: chest pain, syncope, palpitations, irregular heart rate, lightheadedness , peripheral edema RESPIRATORY: Absent: cough, shortness of breath, dyspnea with exertion, orthopnea, wheezing, stridor, hemoptysis GASTROINTESTINAL: Absent: abdominal pain, abdominal distension, nausea, vomiting, diarrhea, constipation, melena, hematochezia GENITOURINARY: Absent: dysuria, frequency, urgency, hesitancy, hematuria, flank pain, genital pain MUSCULOSKELETAL: Absent: myalgia, arthralgia, joint swelling, back pain, neck pain SKIN: Absent: rash, itching, pallor HEMATOLOGIC/IMMUNOLOGIC: Absent: easy bleeding, easy bruising, lymphadenopathy, frequent infections ENDOCRINE: Absent: unexplained weight gain, unexplained weight loss, heat intolerance, cold intolerance NEUROLOGIC: Absent: headache, focal weakness or paresthesias, dizziness, unsteady gait, seizure, mental status changes, bladder or bowel incontinence PSYCHIATRIC: Absent: anxiety, depression, suicidal or homicidal ideation, hallucinations. PHYSICAL EXAMINATION Vital Signs - 24 hr 08/08/18 08/08/18 08/08/18 14:33 16:14 17:44 Temperature 97.6 F 97.9 F 97.9 F Pulse Rate 86 75 Pulse Rate [ 82 Radial] Respiratory 18 16 16 Rate Blood Pressure 149/61 119/55 L Blood Pressure 116/62 [Right Arm] O2 Sat by Pulse 98 98 98 Oximetry (%) GENERAL: Awake, alert, and fully oriented, in no acute distress. HEAD: Normal with no signs of trauma. EYES: Pupils equal, round and reactive to light, extraocular movements intact, sclera anicteric, conjunctiva clear. No lid lag. EARS, NOSE, THROAT: Ears normal, nares patent, oropharynx clear without exudates. Moist mucous membranes. NECK: Normal range of motion, supple without lymphadenopathy, JVD, or masses. LUNGS: Breath sounds equal, clear to auscultation bilaterally. No wheezes, and no crackles. No accessory muscle use. HEART: Regular rate and rhythm, normal S1 and S2 without murmur, rub or gallop. ABDOMEN: Soft, nontender, not distended, normoactive bowel sounds, no guarding, no rebound, no masses. No hepatomegaly or splenomegaly. MUSCULOSKELETAL: Normal range of motion at all joints. No bony deformities or tenderness. No CVA tenderness. UPPER EXTREMITIES: 2+ pulses, warm, well-perfused. No cyanosis. No clubbing. No peripheral edema. LOWER EXTREMITIES: 2+ pulses, warm, well-perfused. No calf tenderness. No peripheral edema. NEUROLOGICAL: Cranial nerves II-XII intact. Normal speech. Normal gait. PSYCHIATRIC: Cooperative. Good eye contact. Appropriate mood and affect. SKIN: Warm, dry, normal turgor, no rashes or lesions noted, normal capillary refill. Laboratory Results - last 24 hr 08/08/18 08/08/18 08/08/18 15:50 15:50 18:20 WBC 8.8 RBC 4.05 Hgb 12.1 Hct 37.2 MCV 91.6 MCH 29.7 MCHC 32.5 RDW 12.5 Plt Count 341 MPV 6.8 L Absolute Neuts (auto) 5.7 Neutrophils % 66.0 Lymphocytes % 23.5 Monocytes % 7.4 Eosinophils % 2.5 Basophils % 0.6 Sodium 142 Potassium 4.1 Chloride 102 Carbon Dioxide 29 Anion Gap 11 BUN 12 Creatinine 0.7 Est GFR (CKD-EPI)AfAm 103.91 Est GFR (CKD-EPI)NonAf 89.65 Random Glucose 92 Calcium 9.2 Total Bilirubin 0.4 AST 19 ALT 15 Alkaline Phosphatase 77 Total Protein 7.3 Albumin 3.7 Urine Color Yellow Urine Appearance Clear Urine pH 7.0 Urine Protein Negative Urine Glucose (UA) Negative Urine Ketones Negative Urine Blood Negative Urine Nitrite Negative Urine Bilirubin Negative Urine Urobilinogen 0.2 Ur Leukocyte Esterase Negative ASSESSMENT/PLAN: Sarah Suh is a 68 yr old F, medical condition hypothyroidism, s/p Posterior Lumbar Decompression, Fusion, Instrumentation, and Transforaminal Lumbar Interbody Fusion L4/5 with Allograft Implant admitted under observation Admitting Diagnosis Intractable back pain Chronic Problems Hypothyroidism A/P: #Intractable back pain, leg pain- s/p lumbar fusion -Pain mgt -Consult Neurosurgery-Dr. Webber -PRN oxycodone -PRN toradol -MRI- no cord compression -colace BID -on neurontin -PT eval in AM #Hypothyroidism -on synthroid FEN: Heparin SQ Reg diet Visit type - Emergency Visit Emergency Visit: Yes ED Registration Date: 08/08/18 Care time: The patient presented to the Emergency Department on the above date and was hospitalized for further evaluation of their emergent condition. - New Patient This patient is new to me today: Yes Date on this admission: 08/08/18 - Critical Care Critical Care patient: No
[2018-08-08] MEDS: DOCUSATE SODIUM 100 MG CAPSULE (FP) PO SCH (21:55)
[2018-08-08] MEDS: HEPARIN NA (PORCINE) 5,000 UNITS/ML 1ML VIAL SQ SCH (22:00)
[2018-08-09] MEDS: KETOROLAC TROMETHAMINE 30 MG/1 ML VIAL IM PRN ×4 (02:25→22:46)
[2018-08-09] MEDS: oxyCODONE HCL 5 MG TABLET PO PRN ×2 (06:18→08:47)
[2018-08-09] MEDS: LEVOTHYROXINE NA 112 MCG TABLET (FP) PO SCH (06:19)
[2018-08-09 08:08] LABS: ALBUMIN 3.4 g/dl (3.4-5.0); BILIRUBIN,TOTAL 0.6 mg/dl (0.2-1); CALCIUM 8.8 mg/dl (8.5-10); CREATININE 0.7 mg/dl (0.55-1.3); POTASSIUM 4.5 mmol/L (3.5-5.1); TOT PROT 6.9 g/dl (6.4-8.2)
[2018-08-09 08:10] LABS: HEMATOCRIT 36.7 % (32.4-45.2); HEMOGLOBIN 12.2 GM/dl (10.7-15.3); MCH 30.6 pg (25.7-33.7); MCHC 33.3 g/dl (32.0-36.0); MEAN CELL VOLUME 91.9 fl (80-96); PLATELET COUNT 313 K/MM3 (134-434); RDW 12.8 % (11.6-15.6); WHITE BLOOD COUNT 6.8 K/mm3 (4.0-10.8)
[2018-08-09] MEDS ORDERED: oxyCODONE HCL 5 MG TABLET PO PRN (08:16)
[2018-08-09] MEDS: diazePAM 2 MG TABLET PO PRN (08:49)
--- NOTE | 2018-08-09 09:44 | PN ---
Physical Exam: SUBJECTIVE: Patient seen and examined OBJECTIVE: Vital Signs Period Temp Pulse Resp BP Sys/Sanchez Pulse Ox Last 24 Hr 97.4 F-97.9 F 72-86 16-18 112-150/52-73 95-98 GENERAL: The patient is awake, alert, and fully oriented, in no acute distress. HEAD: Normal with no signs of trauma. EYES: PERRL, extraocular movements intact, sclera anicteric, conjunctiva clear. No ptosis. ENT: Ears normal, nares patent, oropharynx clear without exudates, moist mucous membranes. NECK: Trachea midline, full range of motion, supple. LUNGS: Breath sounds equal, clear to auscultation bilaterally, no wheezes, no crackles, no accessory muscle use. HEART: Regular rate and rhythm, S1, S2 without murmur, rub or gallop. ABDOMEN: Soft, nontender, nondistended, normoactive bowel sounds, no guarding, no rebound, no hepatosplenomegaly, no masses. EXTREMITIES: 2+ pulses, warm, well-perfused, no edema. NEUROLOGICAL: Cranial nerves II through XII grossly intact. Normal speech, gait not observed. PSYCH: Normal mood, normal affect. SKIN: Warm, dry, normal turgor, no rashes or lesions noted Laboratory Results - last 24 hr 08/08/18 08/08/18 08/08/18 15:50 15:50 18:20 WBC 8.8 RBC 4.05 Hgb 12.1 Hct 37.2 MCV 91.6 MCH 29.7 MCHC 32.5 RDW 12.5 Plt Count 341 MPV 6.8 L Absolute Neuts (auto) 5.7 Neutrophils % 66.0 Lymphocytes % 23.5 Monocytes % 7.4 Eosinophils % 2.5 Basophils % 0.6 Sodium 142 Potassium 4.1 Chloride 102 Carbon Dioxide 29 Anion Gap 11 BUN 12 Creatinine 0.7 Est GFR (CKD-EPI)AfAm 103.91 Est GFR (CKD-EPI)NonAf 89.65 Random Glucose 92 Calcium 9.2 Total Bilirubin 0.4 AST 19 ALT 15 Alkaline Phosphatase 77 Total Protein 7.3 Albumin 3.7 Urine Color Yellow Urine Appearance Clear Urine pH 7.0 Urine Protein Negative Urine Glucose (UA) Negative Urine Ketones Negative Urine Blood Negative Urine Nitrite Negative Urine Bilirubin Negative Urine Urobilinogen 0.2 Ur Leukocyte Esterase Negative 08/09/18 08/09/18 07:26 07:26 WBC 6.8 RBC 4.00 Hgb 12.2 Hct 36.7 MCV 91.9 MCH 30.6 MCHC 33.3 RDW 12.8 Plt Count 313 MPV 7.0 L Absolute Neuts (auto) Neutrophils % Lymphocytes % Monocytes % Eosinophils % Basophils % Sodium 141 Potassium 4.5 Chloride 103 Carbon Dioxide 29 Anion Gap 9 BUN 14 Creatinine 0.7 Est GFR (CKD-EPI)AfAm 103.91 Est GFR (CKD-EPI)NonAf 89.65 Random Glucose 93 Calcium 8.8 Total Bilirubin 0.6 AST 18 ALT 14 Alkaline Phosphatase 78 Total Protein 6.9 Albumin 3.4 Urine Color Urine Appearance Urine pH Urine Protein Urine Glucose (UA) Urine Ketones Urine Blood Urine Nitrite Urine Bilirubin Urine Urobilinogen Ur Leukocyte Esterase Active Medications Generic Name Dose Route Start Last Admin Trade Name Freq PRN Reason Stop Dose Admin Ascorbic Acid 1,000 mg 08/09/18 10:00 Vitamin C - PO DAILY [facility] Calcium Carbonate 500 mg 08/09/18 10:00 Os-Mehrdad 500mg - PO DAILY [facility] Diazepam 2 mg 08/09/18 08:18 08/09/18 08:49 Valium - PO 2 mg Q8H PRN Administration MUSCLE SPASMS Docusate Sodium 100 mg 08/08/18 22:00 08/08/18 21:55 Colace - PO 100 mg BID [facility] Administration Gabapentin 600 mg 08/09/18 10:00 Neurontin - PO DAILY [facility] Heparin Sodium (Porcine) 5,000 unit 08/08/18 22:00 08/08/18 22:00 Heparin - SQ 5,000 unit BID [facility] Administration Ketorolac Tromethamine 30 mg 08/08/18 18:42 08/09/18 07:03 Toradol Injection - IM 08/13/18 18:41 30 mg Q6H PRN Administration PAIN LEVEL 6-10 Levothyroxine Sodium 112 mcg 08/09/18 07:00 08/09/18 06:19 Synthroid - PO 112 mcg DAILY@0700 [facility] Administration Oxycodone HCl 5 mg 08/08/18 18:41 08/09/18 08:47 Roxicodone - PO 5 mg Q4H PRN Administration PAIN LEVEL 1-5 Oxycodone HCl 10 mg 08/09/18 08:16 Roxicodone - PO Q4H PRN PAIN LEVEL 6-10 ASSESSMENT/PLAN:
[2018-08-09] MEDS ORDERED: PATIENT'S OWN MEDICATION (NON-FORMULARY) (Gabapentin [Neurontin] 600 MG) PO SCH (10:00)
--- NOTE | 2018-08-09 10:10 | PN ---
Progress Note (short form) - Note Progress Note: Pt with complaints of pain this am in b/l legs. She states that her pain travels in severity between both legs. No weakness. No difficulty with bowel moments or urinating. Vital Signs Period Temp Pulse Resp BP Sys/Sanchez Pulse Ox Last 24 Hr 97.4 F-97.9 F 72-86 16-18 112-150/52-73 95-98 GEN: A&0x3, appears uncomfortable Back: inc c/d/i and healed. No erythema or drainage. Skin edges well approximated. LE: 5/5 dorsi/plantar flexion b/l CBC, BMP 08/09/18 07:26 08/09/18 07:26 MRI: L4-5 with good placement of pedicle screws A/P: 68 yo female s/p L4-5 TLIF, with pain post-op Case D/w Dr. Chavez, will obtain CT scan for further evaluation of hardware. Some scatter with the MRI Added valium and additional 5 mg oxycodoen every 4 hours as needed for pain Stool softers as needed.
[2018-08-09] MEDS: ASCORBIC ACID 500 MG TABLET (FP) PO SCH (11:22)
[2018-08-09] MEDS: HEPARIN NA (PORCINE) 5,000 UNITS/ML 1ML VIAL SQ SCH (11:22)
[2018-08-09] MEDS: GABAPENTIN 300 MG CAPSULE (FP) PO SCH (11:22)
[2018-08-09] MEDS: CALCIUM (OYSTER SHELL) 500 MG TABLET (FP) PO SCH (11:23)
[2018-08-09] MEDS: DOCUSATE SODIUM 100 MG CAPSULE (FP) PO SCH ×2 (11:23→21:25)
--- NOTE | 2018-08-09 12:12 | PN ---
Physical Exam: SUBJECTIVE: Patient seen and examined at bedside. Pain is manageable right now lying still in bed. When the pain occurs it is sharp and bilateral going down both legs. OBJECTIVE: Vital Signs Period Temp Pulse Resp BP Sys/Sanchez Pulse Ox Last 24 Hr 97.4 F-97.9 F 72-86 16-18 112-150/52-73 95-98 GENERAL: The patient is awake, alert, and fully oriented, in no acute distress. NECK: Trachea midline, full range of motion, supple. LUNGS: Breath sounds equal, clear to auscultation bilaterally, no wheezes, no crackles, no accessory muscle use. HEART: Regular rate and rhythm, S1, S2 without murmur, rub or gallop. ABDOMEN: Soft, nontender, nondistended LOWER EXTREMITIES: 2+ pulses, warm, well-perfused, no edema. 5/5 motor, 5/5 sensory bilaterally NEUROLOGICAL: Cranial nerves II through XII grossly intact. Normal speech Laboratory Results - last 24 hr 08/08/18 08/08/18 08/08/18 15:50 15:50 18:20 WBC 8.8 RBC 4.05 Hgb 12.1 Hct 37.2 MCV 91.6 MCH 29.7 MCHC 32.5 RDW 12.5 Plt Count 341 MPV 6.8 L Absolute Neuts (auto) 5.7 Neutrophils % 66.0 Lymphocytes % 23.5 Monocytes % 7.4 Eosinophils % 2.5 Basophils % 0.6 Sodium 142 Potassium 4.1 Chloride 102 Carbon Dioxide 29 Anion Gap 11 BUN 12 Creatinine 0.7 Est GFR (CKD-EPI)AfAm 103.91 Est GFR (CKD-EPI)NonAf 89.65 Random Glucose 92 Calcium 9.2 Total Bilirubin 0.4 AST 19 ALT 15 Alkaline Phosphatase 77 Total Protein 7.3 Albumin 3.7 Urine Color Yellow Urine Appearance Clear Urine pH 7.0 Urine Protein Negative Urine Glucose (UA) Negative Urine Ketones Negative Urine Blood Negative Urine Nitrite Negative Urine Bilirubin Negative Urine Urobilinogen 0.2 Ur Leukocyte Esterase Negative 08/09/18 08/09/18 07:26 07:26 WBC 6.8 RBC 4.00 Hgb 12.2 Hct 36.7 MCV 91.9 MCH 30.6 MCHC 33.3 RDW 12.8 Plt Count 313 MPV 7.0 L Absolute Neuts (auto) Neutrophils % Lymphocytes % Monocytes % Eosinophils % Basophils % Sodium 141 Potassium 4.5 Chloride 103 Carbon Dioxide 29 Anion Gap 9 BUN 14 Creatinine 0.7 Est GFR (CKD-EPI)AfAm 103.91 Est GFR (CKD-EPI)NonAf 89.65 Random Glucose 93 Calcium 8.8 Total Bilirubin 0.6 AST 18 ALT 14 Alkaline Phosphatase 78 Total Protein 6.9 Albumin 3.4 Urine Color Urine Appearance Urine pH Urine Protein Urine Glucose (UA) Urine Ketones Urine Blood Urine Nitrite Urine Bilirubin Urine Urobilinogen Ur Leukocyte Esterase Active Medications Generic Name Dose Route Start Last Admin Trade Name Freq PRN Reason Stop Dose Admin Ascorbic Acid 1,000 mg 08/09/18 10:00 08/09/18 11:22 Vitamin C - PO 1,000 mg DAILY ANGELA Administration Calcium Carbonate 500 mg 08/09/18 10:00 08/09/18 11:23 Os-Mehrdad 500mg - PO 500 mg DAILY ANGELA Administration Diazepam 2 mg 08/09/18 08:18 08/09/18 08:49 Valium - PO 2 mg Q8H PRN Administration MUSCLE SPASMS Docusate Sodium 100 mg 08/08/18 22:00 08/09/18 11:23 Colace - PO 100 mg BID ANGELA Administration Gabapentin 600 mg 08/09/18 10:00 08/09/18 11:22 Neurontin - PO 600 mg DAILY ANGELA Administration Heparin Sodium (Porcine) 5,000 unit 08/08/18 22:00 08/09/18 11:22 Heparin - SQ 5,000 unit BID ANGELA Administration Ketorolac Tromethamine 30 mg 08/08/18 18:42 08/09/18 07:03 Toradol Injection - IM 08/13/18 18:41 30 mg Q6H PRN Administration PAIN LEVEL 6-10 Levothyroxine Sodium 112 mcg 08/09/18 07:00 08/09/18 06:19 Synthroid - PO 112 mcg DAILY@0700 ANGELA Administration Oxycodone HCl 5 mg 08/08/18 18:41 08/09/18 08:47 Roxicodone - PO 5 mg Q4H PRN Administration PAIN LEVEL 1-5 Oxycodone HCl 10 mg 08/09/18 08:16 Roxicodone - PO Q4H PRN PAIN LEVEL 6-10 ASSESSMENT/PLAN 68 year-old female with a PMH significant for hypothyroidism who is s/p L4-L5 fusion onb 5/2/[address] Chavez. Admitted for lumbar fusion revision. Bilateral radiculopathy s/p L4-L5 fusion on 07/25/18 --POD #15 --pain presently well-managed, gets most relief from ketorolac --plan is revision surgery on , 08/12 --bowel regimen Hypothyroidism --continue levothyroxine FEN Fluids: PO intake adequate Electrolytes: replete as indicated Nutrition: regular diet; NPO Sunday midnight DVT prophylaxis: SCDs, oob, ambulation Physical therapy Dispo: continues to require inpatient care. Full code. Visit type - Emergency Visit Emergency Visit: Yes ED Registration Date: 08/08/18 Care time: The patient presented to the Emergency Department on the above date and was hospitalized for further evaluation of their emergent condition. - New Patient This patient is new to me today: Yes Date on this admission: 08/09/18 - Critical Care Critical Care patient: No
--- NOTE | 2018-08-09 13:12 | PN ---
Progress Note (short form) - Note Progress Note: Patient seen and examined Sarah is a 68 yo female who had undergone a lumbar fusion Patient complaining of right leg pain CT scan notes medial position of right L5 screw Neurologically she has full strength in her right foot I had a long discussion with the patient We discussed continued pain management vs revision of screw Risks/benefits discussed Will plan for revision of instrumentation Sunday
[2018-08-09] MEDS ORDERED: POLYETHYLENE GLYCOL 3350 119 GM BTL PO PRN (17:24)
[2018-08-10] MEDS: LEVOTHYROXINE NA 112 MCG TABLET (FP) PO SCH (06:40)
[2018-08-10] MEDS: DOCUSATE SODIUM 100 MG CAPSULE (FP) PO SCH ×2 (11:30→21:26)
[2018-08-10] MEDS: ASCORBIC ACID 500 MG TABLET (FP) PO SCH (11:30)
[2018-08-10] MEDS: GABAPENTIN 300 MG CAPSULE (FP) PO SCH (11:30)
[2018-08-10] MEDS: CALCIUM (OYSTER SHELL) 500 MG TABLET (FP) PO SCH (11:30)
[2018-08-10] MEDS: KETOROLAC TROMETHAMINE 30 MG/1 ML VIAL IM PRN ×2 (11:31→23:11)
--- NOTE | 2018-08-10 13:20 | PN ---
Physical Exam: SUBJECTIVE: Patient seen and examined at bedside. Feels much better. Pain is located posterior left thigh. It is improved even with walking. OBJECTIVE: Vital Signs Period Temp Pulse Resp BP Sys/Sanchez Pulse Ox Last 24 Hr 97.8 F-98.0 F 63-92 16-17 99-124/55-63 99-100 GENERAL: The patient is awake, alert, and fully oriented, in no acute distress. NECK: Trachea midline, full range of motion, supple. LUNGS: Breath sounds equal, clear to auscultation bilaterally, no wheezes, no crackles, no accessory muscle use. HEART: Regular rate and rhythm, S1, S2 without murmur, rub or gallop. ABDOMEN: Soft, nontender, nondistended LOWER EXTREMITIES: 2+ pulses, warm, well-perfused, no edema. 5/5 motor, 5/5 sensory bilaterally NEUROLOGICAL: Cranial nerves II through XII grossly intact. Normal speech Active Medications Generic Name Dose Route Start Last Admin Trade Name Freq PRN Reason Stop Dose Admin Ascorbic Acid 1,000 mg 08/09/18 10:00 08/10/18 11:30 Vitamin C - PO 1,000 mg DAILY ANGELA Administration Calcium Carbonate 500 mg 08/09/18 10:00 08/10/18 11:30 Os-Mehrdad 500mg - PO 500 mg DAILY ANGELA Administration Diazepam 2 mg 08/09/18 08:18 08/09/18 08:49 Valium - PO 2 mg Q8H PRN Administration MUSCLE SPASMS Docusate Sodium 100 mg 08/08/18 22:00 08/10/18 11:30 Colace - PO 100 mg BID ANGELA Administration Gabapentin 600 mg 08/09/18 10:00 08/10/18 11:30 Neurontin - PO 600 mg DAILY ANGELA Administration Ketorolac Tromethamine 30 mg 08/08/18 18:42 08/10/18 11:31 Toradol Injection - IM 08/13/18 18:41 30 mg Q6H PRN Administration PAIN LEVEL 6-10 Levothyroxine Sodium 112 mcg 08/09/18 07:00 08/10/18 06:40 Synthroid - PO 112 mcg DAILY@0700 ANGELA Administration Oxycodone HCl 5 mg 08/08/18 18:41 08/09/18 08:47 Roxicodone - PO 5 mg Q4H PRN Administration PAIN LEVEL 1-5 Oxycodone HCl 10 mg 08/09/18 08:16 Roxicodone - PO Q4H PRN PAIN LEVEL 6-10 Polyethylene Glycol 17 gm 08/09/18 17:24 Miralax (For Daily Use) - PO Q12H PRN CONSTIPATION ASSESSMENT/PLAN: 68 year-old female with a PMH significant for hypothyroidism who is s/p L4-L5 fusion onb 07/25/[address] Chavez. Admitted for lumbar fusion revision. Bilateral radiculopathy s/p L4-L5 fusion on 07/25/18 --POD #16 --pain presently well-managed, gets most relief from ketorolac --plan is revision surgery on , 08/12 --bowel regimen Hypothyroidism --continue levothyroxine FEN Fluids: PO intake adequate Electrolytes: replete as indicated Nutrition: regular diet; NPO Sunday midnight DVT prophylaxis: SCDs, oob, ambulation Physical therapy Dispo: continues to require inpatient care. Full code. Visit type - Emergency Visit Emergency Visit: Yes ED Registration Date: 08/08/18 Care time: The patient presented to the Emergency Department on the above date and was hospitalized for further evaluation of their emergent condition. - New Patient This patient is new to me today: No - Critical Care Critical Care patient: No
[2018-08-11] MEDS: DOCUSATE SODIUM 100 MG CAPSULE (FP) PO SCH ×3 (06:30→22:55)
[2018-08-11] MEDS: LEVOTHYROXINE NA 112 MCG TABLET (FP) PO SCH (06:41)
[2018-08-11] MEDS: CALCIUM (OYSTER SHELL) 500 MG TABLET (FP) PO SCH (09:31)
[2018-08-11] MEDS: GABAPENTIN 300 MG CAPSULE (FP) PO SCH (09:31)
[2018-08-11] MEDS: ASCORBIC ACID 500 MG TABLET (FP) PO SCH (09:31)
--- NOTE | 2018-08-11 10:16 | PN ---
Physical Exam: SUBJECTIVE: Patient seen and examined, feels comfortable. NPO midnight for revision tomorrow OBJECTIVE: Vital Signs Period Temp Pulse Resp BP Sys/Sanchez Pulse Ox Last 24 Hr 97.9 F-98.7 F 73-82 17-18 99-112/43-75 98-100 GENERAL: The patient is awake, alert, and fully oriented, in no acute distress. HEAD: Normal with no signs of trauma. EYES: PERRL, extraocular movements intact, sclera anicteric, conjunctiva clear. No ptosis. ENT: Ears normal, nares patent, oropharynx clear without exudates, moist mucous membranes. NECK: Trachea midline, full range of motion, supple. LUNGS: Breath sounds equal, clear to auscultation bilaterally, no wheezes, no crackles, no accessory muscle use. HEART: Regular rate and rhythm, S1, S2 without murmur, rub or gallop. ABDOMEN: Soft, nontender, nondistended, normoactive bowel sounds, no guarding, no rebound, no hepatosplenomegaly, no masses. EXTREMITIES: 2+ pulses, warm, well-perfused, no edema. NEUROLOGICAL: Cranial nerves II through XII grossly intact. Normal speech, gait not observed. PSYCH: Normal mood, normal affect. SKIN: Warm, dry, normal turgor, no rashes or lesions noted Active Medications Generic Name Dose Route Start Last Admin Trade Name Freq PRN Reason Stop Dose Admin Ascorbic Acid 1,000 mg 08/09/18 10:00 08/11/18 09:31 Vitamin C - PO 1,000 mg DAILY ANGELA Administration Calcium Carbonate 500 mg 08/09/18 10:08/11/18 09:31 Os-Mehrdad 500mg - PO 500 mg DAILY ANGELA Administration Diazepam 2 mg 08/09/18 08:18 08/09/18 08:49 Valium - PO 2 mg Q8H PRN Administration MUSCLE SPASMS Docusate Sodium 100 mg 08/10/18 14:00 08/11/18 06:30 Colace - PO Not Given TID ANGELA Gabapentin 600 mg 08/09/18 10:00 08/11/18 09:31 Neurontin - PO 600 mg DAILY ANGELA Administration Ketorolac Tromethamine 30 mg 08/08/18 18:42 08/10/18 23:11 Toradol Injection - IM 08/13/18 18:41 30 mg Q6H PRN Administration PAIN LEVEL 6-10 Levothyroxine Sodium 112 mcg 08/09/18 07:00 08/11/18 06:41 Synthroid - PO 112 mcg DAILY@0700 ANGELA Administration Oxycodone HCl 5 mg 08/08/18 18:41 08/09/18 08:47 Roxicodone - PO 5 mg Q4H PRN Administration PAIN LEVEL 1-5 Oxycodone HCl 10 mg 08/09/18 08:16 Roxicodone - PO Q4H PRN PAIN LEVEL 6-10 Polyethylene Glycol 17 gm 08/09/18 17:24 Miralax (For Daily Use) - PO Q12H PRN CONSTIPATION ASSESSMENT/PLAN: 68 year-old female with a PMH significant for hypothyroidism who is s/p L4-L5 fusion onb 07/25/[address] Chavez. Admitted for lumbar fusion revision. Bilateral radiculopathy s/p L4-L5 fusion on 07/25/18 --POD #16 --pain presently well-managed, gets most relief from ketorolac --plan is revision surgery on , 08/12 --bowel regimen Hypothyroidism --continue levothyroxine FEN Fluids: PO intake adequate Electrolytes: replete as indicated Nutrition: regular diet; NPO Sunday midnight DVT prophylaxis: SCDs, oob, ambulation Physical therapy Dispo: continues to require inpatient care. Full code. Visit type - Emergency Visit Emergency Visit: Yes ED Registration Date: 08/08/18 Care time: The patient presented to the Emergency Department on the above date and was hospitalized for further evaluation of their emergent condition. - New Patient This patient is new to me today: No - Critical Care Critical Care patient: No
[2018-08-11] MEDS: KETOROLAC TROMETHAMINE 30 MG/1 ML VIAL IM PRN (15:55)
[2018-08-11] MEDS: diazePAM 2 MG TABLET PO PRN (16:07)
[2018-08-11] MEDS: oxyCODONE HCL 5 MG TABLET PO PRN (17:27)
[2018-08-12] MEDS: LEVOTHYROXINE NA 112 MCG TABLET (FP) PO SCH (06:08)
[2018-08-12] MEDS: DOCUSATE SODIUM 100 MG CAPSULE (FP) PO SCH ×3 (06:09→21:56)
[2018-08-12 07:45] LABS: BASO % 0.4 % (0-2.0); EOS % 5.3 % (0-4.5); HEMATOCRIT 35.7 % (32.4-45.2); HEMOGLOBIN 11.5 GM/dl (10.7-15.3); LYMPH % 31.7 % (8-40); MCH 30.4 pg (25.7-33.7); MCHC 32.3 g/dl (32.0-36.0); MEAN PLT VOLUME 7.2 fl (7.5-11.1); MONO % 11.5 % (3.8-10.2); NEUT % 51.1 % (42.8-82.8); PLATELET COUNT 277 K/MM3 (134-434); RDW 12.8 % (11.6-15.6)
[2018-08-12 08:13] LABS: ALBUMIN 3.4 g/dl (3.4-5.0); BILIRUBIN,TOTAL 0.4 mg/dl (0.2-1); CALCIUM 8.7 mg/dl (8.5-10); CREATININE 0.7 mg/dl (0.55-1.3); POTASSIUM 3.7 mmol/L (3.5-5.1)
--- NOTE | 2018-08-12 09:22 | PN ---
Physical Exam: SUBJECTIVE: Patient seen and examined at bedside. Had significant pain yesterday in posterior left thigh. OBJECTIVE: Vital Signs Period Temp Pulse Resp BP Sys/Sanchez Pulse Ox Last 24 Hr 97.8 F-98.0 F 68-78 16-20 98-123/51-61 97-99 GENERAL: The patient is awake, alert, and fully oriented, in no acute distress. NECK: Trachea midline, full range of motion, supple. LUNGS: Breath sounds equal, clear to auscultation bilaterally, no wheezes, no crackles, no accessory muscle use. HEART: Regular rate and rhythm, S1, S2 without murmur, rub or gallop. ABDOMEN: Soft, nontender, nondistended LOWER EXTREMITIES: 2+ pulses, warm, well-perfused, no edema. 5/5 motor, 5/5 sensory bilaterally NEUROLOGICAL: Cranial nerves II through XII grossly intact. Normal speech Laboratory Results - last 24 hr 08/12/18 08/12/18 06:40 06:40 WBC 6.0 RBC 3.80 Hgb 11.5 Hct 35.7 MCV 94.0 MCH 30.4 MCHC 32.3 RDW 12.8 Plt Count 277 MPV 7.2 L Absolute Neuts (auto) 3.1 Neutrophils % 51.1 Lymphocytes % 31.7 Monocytes % 11.5 H Eosinophils % 5.3 H Basophils % 0.4 Sodium 139 Potassium 3.7 Chloride 106 Carbon Dioxide 25 Anion Gap 8 BUN 16 Creatinine 0.7 Est GFR (CKD-EPI)AfAm 103.91 Est GFR (CKD-EPI)NonAf 89.65 Random Glucose 100 Calcium 8.7 Total Bilirubin 0.4 AST 21 ALT 14 Alkaline Phosphatase 74 Total Protein 7.0 Albumin 3.4 Active Medications Generic Name Dose Route Start Last Admin Trade Name Freq PRN Reason Stop Dose Admin Ascorbic Acid 1,000 mg 08/09/18 10:00 08/11/18 09:31 Vitamin C - PO 1,000 mg DAILY ANGELA Administration Calcium Carbonate 500 mg 08/09/18 10:08/11/18 09:31 Os-Mehrdad 500mg - PO 500 mg DAILY ANGELA Administration Docusate Sodium 100 mg 08/10/18 14:00 08/12/18 06:09 Colace - PO Not Given TID ANGELA Gabapentin 600 mg 08/09/18 10:00 08/11/18 09:31 Neurontin - PO 600 mg DAILY ANGELA Administration Ketorolac Tromethamine 30 mg 08/08/18 18:42 08/11/18 15:55 Toradol Injection - IM 08/13/18 18:41 30 mg Q6H PRN Administration PAIN LEVEL 6-10 Levothyroxine Sodium 112 mcg 08/09/18 07:00 08/12/18 06:08 Synthroid - PO 112 mcg DAILY@0700 ANGELA Administration Polyethylene Glycol 17 gm 08/09/18 17:24 Miralax (For Daily Use) - PO Q12H PRN CONSTIPATION ASSESSMENT/PLAN 68 year-old female with a PMH significant for hypothyroidism who is s/p L4-L5 fusion onb 07/25/[address] Chavez. Admitted for lumbar fusion revision. Bilateral radiculopathy s/p L4-L5 fusion on 07/25/18 --POD #18 --pain focused left posterior thigh, gets most relief from ketorolac --plan is revision surgery today --bowel regimen Hypothyroidism --continue levothyroxine FEN Fluids: PO intake adequate Electrolytes: replete as indicated Nutrition: NPO DVT prophylaxis: SCDs, oob, ambulation Physical therapy Dispo: continues to require inpatient care. Full code. Visit type - Emergency Visit Emergency Visit: Yes ED Registration Date: 08/09/18 Care time: The patient presented to the Emergency Department on the above date and was hospitalized for further evaluation of their emergent condition. - New Patient This patient is new to me today: No - Critical Care Critical Care patient: No
[2018-08-12] MEDS ORDERED: MIDAZOLAM HCL 2 MG/2 ML SINGLE DOSE VIAL ONE ×3 (10:17→11:23)
[2018-08-12] MEDS ORDERED: THROMBIN (RECOMBINANT) 5,000 UNIT VIAL TP ONE (10:24)
[2018-08-12] MEDS: CALCIUM (OYSTER SHELL) 500 MG TABLET (FP) PO SCH (10:25)
[2018-08-12] MEDS: GABAPENTIN 300 MG CAPSULE (FP) PO SCH (10:25)
[2018-08-12] MEDS: ASCORBIC ACID 500 MG TABLET (FP) PO SCH (10:25)
[2018-08-12] MEDS ORDERED: BUPIVACAINE HCL/PF 0.5% (5MG/ML) 10 ML VIAL ONE (10:28)
[2018-08-12] MEDS ORDERED: SUCCINYLCHOLINE CHLORIDE 200 MG/10 ML VIAL ONE (10:48)
[2018-08-12] MEDS ORDERED: ONDANSETRON 4 MG/2 ML VIAL ONE (11:11)
[2018-08-12] MEDS ORDERED: ceFAZolin SODIUM 1 GM VIAL ONE (11:11)
[2018-08-12] MEDS ORDERED: DEXAMETHASONE SOD PHOSPHATE 4 MG/1 ML VIAL ONE (11:11)
[2018-08-12] MEDS ORDERED: THROMBIN (BOVINE) 5,000 UNIT VIAL TP ONE (12:24)
[2018-08-12] MEDS ORDERED: GELATIN SPONGE,ABSORBABLE 1 GM PACKET TP ONE (12:25)
[2018-08-12] MEDS ORDERED: GUM MASTIC/STORAX/MSAL/ALCOHOL 1 DRP DROPSBTL MC ONE (12:29)
--- NOTE | 2018-08-12 12:50 | OP ---
Operative Note - Note: Operative Date: 08/12/18 Pre-Operative Diagnosis: Malpositioned right L5 pedicle screw Operation: Revise/reposition right L5 pedicle screw with right hemilaminectomy Post-Operative Diagnosis: Same as Pre-op Surgeon: Andrew Chavez Manufacturing Support Engineer: Kaleb Carlos Anesthesiologist/SHELL MOLDING ROLLER BLAST OPERATOR: Tony Gutierrez Estimated Blood Loss (mls): 20 Fluid Volume Replaced (mls): 500 Operative Report Dictated: Yes
[2018-08-12] MEDS ORDERED: ACETAMINOPHEN 1000 MG/100 ML VIAL (NON FORMULARY) IVPB PRN (12:52)
[2018-08-12] MEDS ORDERED: ONDANSETRON 4 MG/2 ML VIAL IVPUSH PRN (13:16)
--- NOTE | 2018-08-12 13:17 | PN ---
Progress Note (short form) - Note Progress Note: Pre-op note I had a long discussion with the patient today She continues to complain of pain in her back and leg We spoke again about how her right L5 screw is medial and I would like to revise it Risks/benefits were discussed and Ms Suh consented to the plan for surgery
[2018-08-12] MEDS ORDERED: ACETAMINOPHEN 325 MG TABLET (FP) ONE (14:51)
[2018-08-12] MEDS: LACTATED RINGERS SOLUTION 1,000 ML IV SCH (15:30)
[2018-08-12] MEDS: CEFAZOLIN 1 GM/D5W 1 GM/50 ML BAG IVPB SCH (17:35)
[2018-08-12] MEDS: ACETAMINOPHEN 325 MG TABLET (FP) PO SCH ×2 (17:35→19:44)
[2018-08-12] MEDS: oxyCODONE HCL 5 MG TABLET PO PRN (19:43)
[2018-08-12] MEDS: KETOROLAC TROMETHAMINE 30 MG/1 ML VIAL IM PRN (21:03)
[2018-08-12] MEDS: diazePAM 2 MG TABLET PO SCH (21:56)
[2018-08-13] MEDS: ACETAMINOPHEN 325 MG TABLET (FP) PO SCH ×3 (01:35→17:13)
[2018-08-13] MEDS: oxyCODONE HCL 5 MG TABLET PO PRN ×2 (01:37→17:27)
[2018-08-13] MEDS: CEFAZOLIN 1 GM/D5W 1 GM/50 ML BAG IVPB SCH ×2 (01:37→09:48)
[2018-08-13] MEDS: DOCUSATE SODIUM 100 MG CAPSULE (FP) PO SCH ×2 (06:28→17:14)
[2018-08-13] MEDS: LEVOTHYROXINE NA 112 MCG TABLET (FP) PO SCH (06:28)
--- NOTE | 2018-08-13 07:24 | DS ---
"Physical Exam: SUBJECTIVE: Patient seen and examined at bedside. Seen walking in hallway with PT. OBJECTIVE: Vital Signs Period Temp Pulse Resp BP Sys/Sanchez Pulse Ox Last 24 Hr 97.6 F-98.4 F 59-78 12-20 92-122/46-64 96-99 PHYSICAL EXAM GENERAL: The patient is awake, alert, and fully oriented, in no acute distress. NECK: Trachea midline, full range of motion, supple. LUNGS: Breath sounds equal, clear to auscultation bilaterally, no wheezes, no crackles, no accessory muscle use. HEART: Regular rate and rhythm, S1, S2 without murmur, rub or gallop. ABDOMEN: Soft, nontender, nondistended LOWER EXTREMITIES: 2+ pulses, warm, well-perfused, no edema. 5/5 motor, 5/5 sensory bilaterally NEUROLOGICAL: Cranial nerves II through XII grossly intact. Normal speech LABS Laboratory Results - last 24 hr 08/12/18 08/12/18 06:40 06:40 WBC 6.0 RBC 3.80 Hgb 11.5 Hct 35.7 MCV 94.0 MCH 30.4 MCHC 32.3 RDW 12.8 Plt Count 277 MPV 7.2 L Absolute Neuts (auto) 3.1 Neutrophils % 51.1 Lymphocytes % 31.7 Monocytes % 11.5 H Eosinophils % 5.3 H Basophils % 0.4 Sodium 139 Potassium 3.7 Chloride 106 Carbon Dioxide 25 Anion Gap 8 BUN 16 Creatinine 0.7 Est GFR (CKD-EPI)AfAm 103.91 Est GFR (CKD-EPI)NonAf 89.65 Random Glucose 100 Calcium 8.7 Total Bilirubin 0.4 AST 21 ALT 14 Alkaline Phosphatase 74 Total Protein 7.0 Albumin 3.4 HOSPITAL COURSE: Date of Admission:08/09/18 Date of Discharge: 08/13/18 68 year-old female with a PMH significant for hypothyroidism who is s/p L4-L5 fusion on 07/25/[address] Chavez. Admitted for lumbar fusion revision. Bilateral radiculopathy s/p L4-L5 fusion on 07/25/18 --initially admitted for pain management and found to require revision --revision of TLIF right L5 performed on 08/13/18 --post-operative course uncomplicated Hypothyroidism --continued levothyroxine Minutes to complete discharge: 35 Discharge Summary Reason For Visit: BACK PAIN Current Active Problems Back pain (Acute) Condition: Stable - Instructions Diet, Activity, Other Instructions: Post Operative Instructions - Dr Chavez Diet: You may resume your regular diet. We recommend eating plenty of fiber rich foods to prevent constipation, which can be caused by taking narcotic pain medications. You may also use a stool softener such as DulcoEase. We recommend drinking plenty of water unless you are on fluid restrictions for another medical condition. If you are a diabetic, make sure to keep your glucose well controlled as elevated glucose levels promote infection. Medications: You may resume your previous medications unless otherwise instructed by your surgeon, primary care doctor or rn bsn. You have been prescribed a Narcotic pain medication. Driving or drinking alcohol is PROHIBITED while taking narcotic pain medication, as is operating any heavy machinery. Activity: No bending and or twisting at the waist. No lifting greater than [address] until seen in the office for your first post-operative visit. You may be a passenger for a short time (20-30 minutes) until you are able to tolerate longer distances. Wound Care: Keep area clean and dry. May remove dressing in two (2) days and replace with clean gauze and occlusive dressing such as a tegaderm. NO BATHS. You may shower starting two (2) days after your surgery. When showering, leave the occlusive(plastic) dressing in place and change if it appears wet. Avoid direct water stream onto your incision. General Recommendations: If sitting, use only a straight back chair to ensure proper support, not to exceed a half hour at a time. Lie only on a firm mattress, no couches or recliner chairs. You may lie on your back or side, but not on your abdomen. * Absolutely no bending, stooping, pushing, lifting or straining. * Avoid housework, especially vacuuming or sweeping. * OK to cook, as long as you are not lifting anything heavier than 5 pounds. * Use proper body mechanics to maintain a neutral spine position. * Increasing pain is a red flag telling you to rest. Call your surgeon or report to the ED if you develop: Fevers over 101.5 Chest pain, trouble breathing, calf pain Drainage from the incision (yellow/green, foul smelling) Follow-up Call surgeon's office to schedule your follow-up appointment in two weeks. Referred to following clinics/specialists for follow-up care: Andrew Chavez MD [facility]/[address], [address] [place] [address] [phone] [facility] TABLE MACHINE OPERATOR: This report was requested by: Kaleb Carlos | Reference #: [id number] 08/06/2018 Oxycodone hcl 10 mg / 60 tablets / Andrew Chavez D, MD Disposition: HOME - Home Medications Comprehensive Discharge Medication List: Ambulatory Orders Gabapentin 600 mg PO PRN PRN 10/19/17 Levothyroxine [Synthroid -] 112 mcg PO DAILY 10/19/17 Ascorbic Acid [Vitamin C -] 1,000 mg PO DAILY 07/22/18 Calcium Carbonate [Oysco-500] 500 mg PO DAILY 07/22/18 Diazepam [Valium] 2 mg PO TID #21 tablet MDD 3 07/26/18 Docusate Sodium [Colace -] 100 mg PO BID #60 capsule 07/26/18 Gabapentin [Neurontin] 600 mg PO DAILY #20 tablet 07/26/18 oxyCODONE HCL [Roxicodone -] 5 mg PO Q4H PRN #30 tablet MDD 6 07/26/18 This patient is new to me today: No Emergency Visit: Yes ED Registration Date: 08/09/18 Care time: The patient presented to the Emergency Department on the above date and was hospitalized for further evaluation of their emergent condition. Critical Care patient: No - Discharge Referral Referred to [facility] Med P.C.: No"
--- NOTE | 2018-08-13 07:58 | SPA.POSTOP ---
- POST-OP NOTE POD #1 s/p Revise/reposition right L5 pedicle screw with right hemilaminectomy No acute events since surgical procedure per RN notes. She ambulate last night with assistance as well as early this morning. Voiding spontaneously. Patient resting comfortably. C/o incisional tenderness. Adequate pain management via prn meds. Patient initially had pain down her LLE prior too her first surgery. Was discharged home and soon developed new RLE pain. Now s/p revision, she states the pain has almost subsided. Denies n/v/f/c, CP or SOB. Last Vital Signs Temp Pulse Resp BP Pulse Ox 97.6 F 71 19 119/54 L 99 08/13/18 04:00 08/13/18 04:00 08/13/18 04:00 08/13/18 04:00 08/13/18 05:44 Physical Exam General: NAD Pulm: CTA bilat Cor: RRR Abd: Soft. Non-tender. No distention Motor: GMNVI bilat LE: Soft, non-tender bilat. SCD's bilat. <Kaleb Carlos - Last Filed: 08/13/18 08:01> - POST-OP NOTE POD #0 s/p No acute events since surgical procedure per RN notes. Patient resting comfortably. Pain management via prn meds. Denies n/v/f/c, CP or SOB. Last Vital Signs Temp Pulse Resp BP Pulse Ox 97.9 F 86 18 123/58 L 97 08/13/18 14:00 08/13/18 14:00 08/13/18 14:00 08/13/18 14:00 08/13/18 14:00 Physical Exam General: No acute distress. Pulm: Clear to auscultation bilat anteriorly Cor: Regular rhythm Abd: Soft. Non-tender. No distention LE: Soft, non-tender bilat. SCD's bilat. Patient feeling better this morning Minimal pain in the leg D/C Planning Neuro intact <Andrew Chavez - Last Filed: 08/13/18 14:20> Problem List - Problems (1) Spondylisthesis Assessment/Plan: POD #1 s/p revision of the right L5 pedicle screw with hemilaminectomy Patient had script for Oxycodone 10mg (60 tablets filled on 08/06/18) [place] for Valium 2mg BID Patient is cleared for discharge home after ambulates with PT today. Code(s): M43.10 - SPONDYLOLISTHESIS, SITE UNSPECIFIED Qualifiers: Spinal region: lumbar Qualified Code(s): M43.16 - Spondylolisthesis, lumbar region <Kaleb Carlos P - Last Filed: 08/13/18 08:01> Visit type - Case Type Case Type: ED Admission <Kaleb Carlos P - Last Filed: 08/13/18 08:01>
[2018-08-13] MEDS: KETOROLAC TROMETHAMINE 30 MG/1 ML VIAL IM PRN (07:59)
[2018-08-13] MEDS: diazePAM 2 MG TABLET PO SCH (09:47)
[2018-08-13] MEDS: CALCIUM (OYSTER SHELL) 500 MG TABLET (FP) PO SCH (09:48)
[2018-08-13] MEDS: ASCORBIC ACID 500 MG TABLET (FP) PO SCH (09:48)
[2018-08-13] MEDS: GABAPENTIN 300 MG CAPSULE (FP) PO SCH (09:48)
[2018-08-13 14:05] VITALS: BP 123/58; PULSE 86; TEMP 97.9
[2018-08-13] MEDS: LACTATED RINGERS SOLUTION 1,000 ML IV SCH (17:14)
--- NOTE | 2018-08-15 15:12 | PATH ---
Surgical Pathology Report Patient Name: AVTAR FRANKS Med. Rec. #: [id number] /Age/Gender: 1950 (Age: 68) / F Account: [id number] Location: [facility] MED-SURG Taken: 08/12/2018 Received: 08/12/2018 Reported: 08/15/2018 Physicians: So Marti M.D. Specimen(s) Received EXPLANTS FROM BACK Clinical History Painful hardware Final Diagnosis EXPLANTS, BACK: HARDWARE, DESCRIBED (GROSS EXAMINATION ONLY). Electronically Signed Laxmi Robledo M.D. Gross Description Received without fixative, labeled "explant from patient's back" are five portions of metallic hardware ranging from 0.8-6.2 cm in greatest dimension. For gross examination only. AE/08/13/2018 ebram/08/13/2018
--- NOTE | 2018-08-30 00:31 | OP ---
DATE OF OPERATION: 08/12/2018 PREOPERATIVE DIAGNOSIS: Malpositioned right pedicle screw. POSTOPERATIVE DIAGNOSIS: Malpositioned right pedicle screw. PROCEDURE PERFORMED: Revision right pedicle screw, right hemilaminotomy. SURGEON: Alethea Chavez MD STAFFING MANAGER: GAURI Gonzalez ESTIMATED BLOOD LOSS: 20 mL. INTRAVENOUS FLUIDS: Per Anesthesia. ANESTHESIA: Spinal. COMPLICATIONS: There were none. DISPOSITION: Patient brought to the PACU in stable condition. INDICATIONS FOR SURGERY: Patient is a 68-year-old female who has been suffering from pain from her back down her legs. She had previously undergone TLIF. She had complained of pain from her back down her right leg. We had ordered a CAT scan and MRI, which noted that there was medial position of the right pedicle screw. I explained to the patient that although neurologically she was intact, there was a chance that the screw could be irritating the nerve. I recommended taking her back to reposition the screw. Risks, benefits, and alternatives were discussed, and the patient consented to surgery. DESCRIPTION OF PROCEDURE: The patient was brought to the operating room by the Anesthesia staff. After appropriate patient identification was performed, spinal anesthesia was given. Patient was able to position herself prone onto the OR table with all areas and bony prominences well padded at this time. Her back was prepped and draped in a sterile manner. At this point, a time-out was completed. The incision on the right hand side was opened up. Dissection was carried along the fascia. Fascia was split open, and right L5 pedicle screw was visualized. The caps and tobias were removed. Right L5 pedicle screw was removed, and using C-arm guidance, it was repositioned to a more lateral point. The lamina was identified, and a laminectomy was completed. By the end of the procedure, the L5 nerve root appeared to be well decompressed. A tobias was placed in. Caps were placed on. Compression was applied. The fascia was closed with a No. 1 Vicryl suture. The subcutaneous tissue was closed with 2-0 Vicryl suture. Skin was closed with 3-0 Monocryl suture. Dermabond was applied. Steri-Strips were applied. A sterile dressing was applied. The patient was placed supine on the OR bed and brought to the PACU in stable condition. ALETHEA CHAVEZ M.D. /[id number]
== END 2018-08-13 17:33 | disposition home or self-care (01) | DRG 460 ==
LOC: FER 14:25 → UNDOADMOB 16:14 → FM/S 16:14 → OBSVTOIN 18:14 → INTOOBSV 18:14 → FM/S 19:05 → OBSVTOIN 08-09 18:14 → FM/S 08-09 18:14
PROVIDERS: ADMIT Internal Medicine; ATTEND Nurse Practitioner Acute Care
PROC: 0QW004Z Revision of Internal Fixation Device in Lumbar Vertebra, Open Approach (ICD-10-PCS; 2018-08-12)
PROC: 01NB0ZZ Release Lumbar Nerve, Open Approach (ICD-10-PCS; 2018-08-12)
PROC: 0SG30AJ Fusion of Lumbosacral Joint with Interbody Fusion Device, Posterior Approach, Anterior Column, Open Approach (ICD-10-PCS; principal; 2018-08-12 09:45)
DX: T84.226A Displacement of internal fixation device of vertebrae, initial encounter (principal); M54.16 Radiculopathy, lumbar region; M54.9 Dorsalgia, unspecified; M43.16 Spondylolisthesis, lumbar region; E03.9 Hypothyroidism, unspecified; Y83.9 Surgical procedure, unspecified as the cause of abnormal reaction of the patient, or of later complication, without mention of misadventure at the time of the procedure
CPT/HCPCS: 36415; 72100-TC-FY; 72131-TC; 72148-TC; 80053; 81003; 85025; 85027; 87086; 88300-TC; 94760; 97116-GP; 97162-GP; 99282-25; G0378; J1644